=== PATIENT | female | born 1985 | race Two or more races ===

== ENCOUNTER 2024-09-16 17:37 | Observation (INO) | payer MEDICAID, OTHER ==
[~2024-09-16] VITALS: Ht 162.6 cm; Wt 63.5 kg
[2024-09-16] MEDS ORDERED: PREN1TAB71 OR (17:54)
[2024-09-16 19:45] LABS: Basophils # (auto) 0 10 ^3/uL (0-0.2); Basophils % (auto) 0.8 % (0.0-2.0); Eosinophils # (auto) 0.1 10 ^3/uL (0-0.8); Eosinophils % (auto) 1.3 % (0.0-7.0); Hematocrit 27.9 % (36.0-46.0); Hemoglobin 9.2 g/dL (12.2-16.2); Lymphocytes # (auto) 1.5 10 ^3/uL (0.4-5.4); Lymphocytes % (auto) 24.2 % (10.0-50.0); Mean Corpuscular Hemoglobin 25.6 pg (28.0-32.0); Mean Corpuscular Hgb Conc. 32.9 g/dL (32.0-36.0); Mean Corpuscular Volume 77.8 fL (80.0-100.0); Monocytes # (auto) 0.8 10 ^3/uL (0-1.3); Monocytes % (auto) 11.8 % (0.0-12.0); Neutrophils % (auto) 61.9 % (37.0-80.0); Nucleated Red Blood Cells % 0.1 %; Platelet Count (auto) 249 10^3/uL (140-450); Red Blood Cells 3.59 10^6/uL (4.0-5.20); Red Cell Distribution Width 15.8 % (11.8-14.3); White Blood Cell 6.4 10^3/uL (4.4-10.8)
[2024-09-16 19:56] LABS: Alanine Aminotransferase 25 U/L (7-40); Albumin 3.4 g/dL (3.2-4.8); Alkaline Phosphatase 58 U/L (46-116); Amylase 80 U/L (30-118); Anion Gap 6 (5-15); Aspartate Aminotransferase 27 U/L (13-40); BUN/Creatinine Ratio 10.5 (10.0-20.0); Blood Urea Nitrogen 6 mg/dL (9-23); Calcium 8.6 mg/dL (8.7-10.4); Carbon Dioxide 24 mmol/L (20-31); Chloride 109 mmol/L (98-107); Glucose 85 mg/dL (74-106); Lipase 44 U/L (12-53); Potassium 4.1 mmol/L (3.5-5.1); Sodium 139 mmol/L (136-145)
[2024-09-16 19:57] LABS: Bilirubin, Total 0.4 mg/dL (0.2-1.0); Total Protein 6.1 g/dL (5.7-8.2)
--- NOTE | 2024-09-16 20:30 | DVH ---
OB ULTRASOUND <14 WEEKS: HISTORY: abdominal pain and history of PTL TECHNIQUE: Multiple real-time grayscale sonographic images of the pelvis with duplex Doppler color f low, spectral and M-mode analysis. TRANSDUCERS: Transvaginal FINDINGS: The cervix appears closed and measures 4 cm long IUP single live fetus at 23 weeks 3 days average ultrasound age based measurements BPD: 5.57 cm ; 23 weeks 0 days HC: 21.25 cm ; 23 weeks 2 days AC: 18.96 cm ; 23 weeks 5 days FL: 4.19 cm ; 23 weeks 5 days heart rate detected at 150 beats per minute. position breech Placenta anterior with no previa or abruption. EFW: 611 g CHRISTOFER: Adequate ; MVP: 2.6 cm IMPRESSION: 1. IUP single live fetus 23 weeks 3 days AUA corresponding to an МАРИНА of 01/10/2025 2. FHR: 150 bpm. 3. Contractions were noted. No acute abnormality detected.
[2024-09-16] MEDS: TERBUTALINE SULFATE 1 MG/ML 1ML VIAL SC ONE (20:49)
[2024-09-16] MEDS: TERBUTALINE SULFATE 1 MG/ML 1ML VIAL SC PRN (20:49)
--- NOTE | 2024-09-17 05:21 | DVHDS2 ---
Physician Discharge Progress N Final Diagnosis: IUP 26 wk, abdominal pain Gastroenteritis, acute Dehydration Threatened Labor Operations or Procedures: Operations or Procedures IV hydration, medical observation OB ultrasound NST Cervical length US Commentary: Commentary Cervix closed, cx length 4cm, NOT IN PTL IV hydration, contraction improved with hydration and tocolytics Labs WNL Condition on Discharge: Stable Disposition: Home Discharge Instructions: Diet: Regular Activity: No Restrictions, As Tolerated Follow Up/Referral: Pt encouraged to follow up with primary OB at scheduled appointment tomorrow. Medications: No new meds Follow Up Care: Discharge Statement: "Patient was advised to return to the ER or call 911 if any headaches, dizziness, shortness of breath, chest pain, abdominal pain, bleeding, fevers, or worsening of medical condition. Patient was counseled about treatment plan, medications, possible side effects, patientverbalized understanding. All questions were answered to the best of my ability. This discharge took greater then 30 minutes in planning, reviewing documentation, counseling the patient, and discussing with other team members." JIL STEWARD DO Sep 17, 2024 05:21
== END 2024-09-16 22:19 | disposition home or self-care (01) ==
LOC: LDRP 17:37
PROVIDERS: ADMIT Obstetrics & Gynecology; ATTEND Obstetrics & Gynecology
DX: O47.02 False labor before 37 completed weeks of gestation, second trimester (principal); O99.282 Endocrine, nutritional and metabolic diseases complicating pregnancy, second trimester; E86.0 Dehydration; O99.612 Diseases of the digestive system complicating pregnancy, second trimester; K52.9 Noninfective gastroenteritis and colitis, unspecified; Z3A.26 26 weeks gestation of pregnancy; Z79.899 Other long term (current) drug therapy; Z88.0 Allergy status to penicillin
CPT/HCPCS: 36415; 59025; 76805; 76817; 80053; 82150; 83690; 85025; 94760; 96360; 96361; 96372; G0378; J3105

== ENCOUNTER 2024-10-26 17:35 | Observation (INO) | payer MEDICAID ==
[~2024-10-26] VITALS: Ht 162.6 cm; Wt 63.5 kg
[2024-10-26] MEDS ORDERED: TERBUTALINE SULFATE 1 MG/ML 1ML VIAL SC SCH (19:30)
--- NOTE | 2024-10-26 20:19 | DVH ---
OB ULTRASOUND, LIMITED CLINICAL INDICATION: Contractions TECHNIQUE: Multiple grayscale ultrasound and M-mode images were obtained of the pelvis for evaluation of intrauterine . COMPARISON: US OB ULTRASOUND COMP GTR 14 WKS on DOS: 09/16/24 FINDINGS: A single living fetus is seen in transverse head left presentation. Biparietal diameter: 7.32 cm (29 weeks, 3 days) Head Circumference: 27.37 cm (29 weeks, 6 days) Abdomen Circumference: 25.42 cm (29 weeks, 4 days) Femur Length: 5.58 cm (29 weeks, 3 days) Estimated weight: 1411 grams (+/- 211 grams). 3 lb 2 oz Placenta: Anterior, low-lying 1.7 cm from the cervix. Amniotic fluid: Visibly normal. CHRISTOFER 22 cm Cervix is 3.9 cm and closed. heart rate: 131 beats/min. A complete anatomic survey was not performed on this exam. IMPRESSION: Single intrauterine with an estimated gestational age of 29 weeks, 4 days, corresponding to an estimated date of delivery of 01/07/2025. Low-lying anterior placenta.
--- NOTE | 2024-10-27 03:41 | DVHDS2 ---
Physician Discharge Progress N Final Diagnosis: PTL Problems List: (1) labor in third trimester Operations or Procedures: Operations or Procedures S: 38yo IUP@29.3wks presents to OB triage with c/o UCs and vaginal pressure. Pt reports going to [facility] ED last week and being dx with kidney stones. Denies LOF/VB/CUELLAR/vision changes/RUQ pain. Endorses +FM. PNC [facility], next appt scheduled for 11/01/24. PNC complicated with threatened with 2 cm open cervix in first trime ster, denies any complications after that. O: VSS UA wnl NST reactive TOCO: 1 UC seen but pt feels them every 5 minutes 1 dose of SQ terbutaline given, no UCs seen with TOCO, pt denies feeling UCs prior to D/C SVE by RN: closed/thick/high A: 38yo IUP@29.3wks PTL, resolved P: D/C home Pt instructed to drink 1 gallon of water a day. Pt instructed to f/u with Dr. Sacles sole buffer ROBERTA and notify them of PTL occurrence. kick counts and Preeclampsia warning signs reviewed. PTL precautions given and when to return to the hospital. Other Interventions Other Interventions [place] [address] Ph: [phone] DIAGNOSTIC IMAGING Diagnostic Imaging Report : [id number] Signed PATIENT: PABLO NOLAN ACCT: [id number] UNIT: [id number] : 1985 LOC: [facility] ROOM / BED: TRIAGE1 / A AGE / SEX: 38 / F ADM STATUS: ADM IN SERVICE 13 ORDERING PHYSICIAN: VIRGINIA SMITH CNM PROCEDURE(s): OBUS - OB ULTRASOUND COMP GTR 14 WKS REASON: Contractions ORDER NUMBER(s): [id number], ACCESSION NUMBER(s): [id number] OB ULTRASOUND, LIMITED CLINICAL INDICATION: Contractions TECHNIQUE: Multiple grayscale ultrasound and M-mode images were obtained of the pelvis for evaluation of intrauterine . COMPARISON: US OB ULTRASOUND COMP GTR 14 WKS on DOS: 09/16/24 FINDINGS: A single living fetus is seen in transverse head left presentation. Biparietal diameter: 7.32 cm (29 weeks, 3 days) Head Circumference: 27.37 cm (29 weeks, 6 days) Abdomen Circumference: 25.42 cm (29 weeks, 4 days) Femur Length: 5.58 cm (29 weeks, 3 days) Estimated weight: 1411 grams (+/- 211 grams). 3 lb 2 oz Placenta: Anterior, low-lying 1.7 cm from the cervix. Amniotic fluid: Visibly normal. CHRISTOFER 22 cm Cervix is 3.9 cm and closed. heart rate: 131 beats/min. A complete anatomic survey was not performed on this exam. IMPRESSION: Single intrauterine with an estimated gestational age of 29 weeks, 4 days, corresponding to an estimated date of delivery of 01/07/2025. Low-lying anterior placenta. ATED BY: ARIAN SOMMER MD DICTATED DATE/TIME: 10/26/242015 SIGNED BY: ARIAN SOMMER MD SIGNED DATE/TIME: 10/26/242015 CC: Condition on Discharge: Stable Disposition: Home Discharge Instructions: Diet: Regular Activity: Light activity Activity comment: pelvic rest Medications: see med list Follow Up Care: Specialist: Pt instructed to f/u with Dr. Scales sole buffer ROBERTA and notify them of PTL occurrence. Discharge Statement: "Patient was advised to return to the ER or call 911 if any headaches, dizziness, shortness of breath, chest pain, abdominal pain, bleeding, fevers, or worsening of medical condition. Patient was counseled about treatment plan, medications, possible side effects, patientverbalized understanding. All questions were answered to the best of my ability. This discharge took greater then 30 minutes in planning, reviewing documentation, counseling the patient, and discussing with other team members." VIRGINIA SMITH CNM Oct 27, 2024 03:41
== END 2024-10-26 20:56 | disposition home or self-care (01) ==
LOC: LDRP 17:35
PROVIDERS: ADMIT Obstetrics & Gynecology; ATTEND Obstetrics & Gynecology
DX: O60.03 Preterm labor without delivery, third trimester (principal); Z3A.29 29 weeks gestation of pregnancy; Z79.899 Other long term (current) drug therapy; Z98.890 Other specified postprocedural states
CPT/HCPCS: 59025; 76805; 81002; 94760; 96372; G0378; J3105

== ENCOUNTER 2024-11-05 19:56 | Observation (INO) | payer MEDICAID ==
[~2024-11-05] VITALS: Ht 162.6 cm; Wt 68.0 kg
--- NOTE | 2024-11-05 23:35 | DVHDS2 ---
Physician Discharge Progress N Final Diagnosis: IUP 30 wk, threatened labor Renal colic, hx of nephrolithiasis Operations or Procedures: Operations or Procedures NST Condition on Discharge: Guarded Disposition: Home Discharge Instructions: Diet: Regular Activity: No Restrictions, As Tolerated Follow Up/Referral: Follow up with Primary OB-OFFICE MESSENGER HELPER Dr. Scales at [facility] appt. on 11/14/24. Medications: Take all prescribed medications as directed. Follow Up Care: Discharge Statement: "Patient was advised to return to the ER or call 911 if any headaches, dizziness, shortness of breath, chest pain, abdominal pain, bleeding, fevers, or worsening of medical condition. Patient was counseled about treatment plan, medications, possible side effects, patientverbalized understanding. All questions were answered to the best of my ability. This discharge took greater then 30 minutes in planning, reviewing documentation, counseling the patient, and discussing with other team members." JIL STEWARD DO Nov 05, 2024 23:35
== END 2024-11-05 21:47 | disposition home or self-care (01) ==
LOC: LDRP 19:56
PROVIDERS: ADMIT Obstetrics & Gynecology; ATTEND Obstetrics & Gynecology
DX: O47.03 False labor before 37 completed weeks of gestation, third trimester (principal); O99.891 Other specified diseases and conditions complicating pregnancy; M54.9 Dorsalgia, unspecified; O21.2 Late vomiting of pregnancy; O26.893 Other specified pregnancy related conditions, third trimester; R51.9 Headache, unspecified; N23 Unspecified renal colic; Z87.442 Personal history of urinary calculi; Z3A.30 30 weeks gestation of pregnancy
CPT/HCPCS: 59025; 81002; 94760; G0378

== ENCOUNTER 2024-11-29 12:13 | Observation (INO) | payer MEDICAID ==
--- NOTE | 2024-11-29 12:42 | DVHDS2 ---
Physician Discharge Progress N Final Diagnosis: labor check Operations or Procedures: Operations or Procedures cx closed/thick./high Condition on Discharge: Good Disposition: Home Discharge Instructions: Diet: Regular Activity: Light activity Medications: na Follow Up Care: Specialist: one day with ob Discharge Statement: "Patient was advised to return to the ER or call 911 if any headaches, dizziness, shortness of breath, chest pain, abdominal pain, bleeding, fevers, or worsening of medical condition. Patient was counseled about treatment plan, medications, possible side effects, patientverbalized understanding. All questions were answered to the best of my ability. This discharge took greater then 30 minutes in planning, reviewing documentation, counseling the patient, and discussing with other team members." KIKA CANELA DO Nov 29, 2024 12:42
== END 2024-11-29 13:32 | disposition home or self-care (01) ==
LOC: UNDOADMOB 12:13 → LDRP 12:13 → UNDODISOB 13:32
PROVIDERS: ADMIT Obstetrics & Gynecology; ATTEND Obstetrics & Gynecology
DX: O62.9 Abnormality of forces of labor, unspecified (principal); O99.891 Other specified diseases and conditions complicating pregnancy; M54.9 Dorsalgia, unspecified; Z3A.34 34 weeks gestation of pregnancy; Z79.899 Other long term (current) drug therapy; Z98.890 Other specified postprocedural states
CPT/HCPCS: 59025; 81002; G0378

== ENCOUNTER 2024-12-22 21:20 | Emergency (ER) | payer MEDICAID, OTHER ==
[~2024-12-22] VITALS: Ht 162.6 cm; Wt 61.5 kg
[2024-12-22 21:24] VITALS: BP 119/80; RESP 16; O2SAT 97
[2024-12-22] MEDS ORDERED: SODIUM CHLORIDE 0.9% 1,000 ML IV ONE (21:30)
[2024-12-22 21:54] LABS: Basophils # (auto) 0.1 10 ^3/uL (0-0.2); Eosinophils # (auto) 0.1 10 ^3/uL (0-0.8); Hemoglobin 12.7 g/dL (12.2-16.2); Lymphocytes # (auto) 1.7 10 ^3/uL (0.4-5.4); Monocytes # (auto) 0.4 10 ^3/uL (0-1.3); Nucleated Red Blood Cells % 0.1 %; White Blood Cell 5.1 10^3/uL (4.4-10.8)
[2024-12-22 21:55] LABS: Basophils % (auto) 1.4 % (0.0-2.0); Eosinophils % (auto) 1.9 % (0.0-7.0); Lymphocytes % (auto) 33.9 % (10.0-50.0); Mean Corpuscular Hemoglobin 23.8 pg (28.0-32.0); Mean Corpuscular Hgb Conc. 30.9 g/dL (32.0-36.0); Mean Corpuscular Volume 76.9 fL (80.0-100.0); Monocytes % (auto) 7.2 % (0.0-12.0); Neutrophils # (auto) 2.9 10 ^3/uL (1.6-8.6); Neutrophils % (auto) 55.6 % (37.0-80.0); Platelet Count (auto) 311 10^3/uL (140-450); Red Blood Cells 5.33 10^6/uL (4.0-5.20); Red Cell Distribution Width 26.6 % (11.8-14.3)
[2024-12-22 21:58] VITALS: PULSE 57
--- NOTE | 2024-12-22 21:58 | ED.PDOC ---
History of Present Illness HPI Comments 39 y/o F is [id number] ambulance for c/o non-radiating, left-anterior chest- wall, lower back, and bilateral leg pain and shortness of breath, today. Per EMS report, patient, initially, called for sudden and unprovoked onset of chest pain and shortness of breath, earlier, this evening, that worsened with respirations. Pain is described to be sharp in quality and a 7/10 in severity. On scene, patient's vitals were stated to have been stable and within normal limits. Patient is stated to have a history of anemia and asthma, with recent blood transfusions following a she had 2x weeks ago. At time of assessment, patient complains of lower back pain that radiaties to her legs. She denies having any fever, chills, nausea, vomiting, or other associated symptoms or modifiers at this time. 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 HAND History: Denies all TOOL LAPPER HAND Hx Family History Family History: Unknown Social History Smoker: Non-Smoker Alcohol: Denies ETOH Use Drugs: Denies Drug Use Lives In: Home Gastrointestinal: reports: constipated All Other Systems: Reviewed and Negative (comprehensive overview of systems negative unless otherwise stated in HPI) Physical Exam General Appearance: No Apparent Distress, Normal HEENT: Normal ENT Inspection, Pharynx Normal, TMs Normal Neck: Full Range of Motion, Non-Tender, Normal, Normal Inspection Respiratory: Chest Non-Tender, Lungs Clear, No Accessory Muscle Use, No Respiratory Distress, Normal Breath Sounds Cardiovascular: No Edema, No JVD, No Murmur, No Gallop, Normal Peripheral Pulses, Regular Rate/Rhythm Breast Exam: Deferred Gastrointestinal: No Organomegaly, Non Tender, No Pulsatile Mass, Normal Bowel Sounds, Soft Genitalia: Deferred Pelvic: Deferred Rectal: Deferred Extremities: No calf tenderness, Normal capillary refill, Normal inspection, Normal range of motion, No pedal edema, Tender (bilateral lower extremities) Musculoskeletal : Apperance: Normal Neurologic: Alert, assembler wire group II-XII nml as Tested, No Motor Deficits, Normal Affect, Normal Mood, No Sensory Deficits Cerebellar Function: Normal Reflexes: Normal Skin: Dry, Normal Color, Warm Lymphatic: No Adenopathy Was a procedure done? Was a procedure done?: No EKG EKG : Pulse Rate (adult): 57 [place]: Normal Cardiac Rhythm: NSR Block: None Hypertrophy: None ST: Normal Differential Dx Considerations may include: FL, ACS, PE, URI, Viral syndrome, costochondritis, pericarditis X-Ray, Labs, Meds, VS Vital Signs Date Time Temp Pulse Resp B/P (MAP) Pulse Ox O2 Delivery O2 Flow Rate FiO2 12/22/24 21:58 57 12/22/24 21:33 57 12/22/24 21:24 97.8 62 16 119/80 (93) 97 Lab Test 12/22/24 21:43 Range/Units White Blood Count 5.1 4.4-10.8 10^3/uL Red Blood Count 5.33 H 4.0-5.20 10^6/uL Hemoglobin 12.7 12.2-16.2 g/dL Hematocrit 41.0 36.0-46.0 % Mean Corpuscular Volume 76.9 L 80.0-100.0 fL Mean Corpuscular Hemoglobin 23.8 L 28.0-32.0 pg Mean Corpuscular Hemoglobin Concent 30.9 L 32.0-36.0 g/dL Red Cell Distribution Width 26.6 H 11.8-14.3 % Platelet Count 311 140-450 10^3/uL Mean Platelet Volume 7.5 6.9-10.8 fL Neutrophils (%) (Auto) 55.6 37.0-80.0 % Lymphocytes (%) (Auto) 33.9 10.0-50.0 % Monocytes (%) (Auto) 7.2 0.0-12.0 % Eosinophils (%) (Auto) 1.9 0.0-7.0 % Basophils (%) (Auto) 1.4 0.0-2.0 % Neutrophils # (Auto) 2.9 1.6-8.6 10 ^3/uL Lymphocytes # (Auto) 1.7 0.4-5.4 10 ^3/uL Monocytes # (Auto) 0.4 0-1.3 10 ^3/uL Eosinophils # (Auto) 0.1 0-0.8 10 ^3/uL Basophils # (Auto) 0.1 0-0.2 10 ^3/uL Nucleated Red Blood Cells 0.1 % D-Dimer, Quantitative Pending Sodium Level 140 136-145 mmol/L Potassium Level 4.0 3.5-5.1 mmol/L Chloride Level 104 98-107 mmol/L Carbon Dioxide Level 28 20-31 mmol/L Anion Gap 8 5-15 Blood Urea Nitrogen 12 9-23 mg/dL Creatinine 0.72 0.550-1.02 mg/dL Glomerular Filtration Rate Calc 110 >90 mL/min BUN/Creatinine Ratio 16.7 10.0-20.0 Serum Glucose 94 74-106 mg/dL Calcium Level 9.4 8.7-10.4 mg/dL Troponin I High Sensitivity < 3 L </=34 ng/L Time of 1ST Reevaluation: 21:55 Reevaluation 1ST: Unchanged Time of 2ND Reevaluation: 22:10 Reevaluation 2ND: Improved Patient Education/Counseling: Diagnosis, Treatment Family Education/Counseling: No Family Present Additional Information - The following tests were ordered, and results were reviewed by me: CT angio chest w/contrasts, BMP, EKG, CXR, CBC - Additional information was gathered from interviewing the following independent Historian: EMS - I reviewed and agreed with the following test results read by other provider:CT angion chest w/contrasts, CXR - I discussed treatments and results with medical personnel pt refused an IV, so CTA could not be done. i ordered a DDi instead since i was still concerned about PE, as she had c section recently. however, on reassessment, pt eloped Departure 1 Departure Time of Disposition: 22:51 Impression: Primary Impression: Chest pain Disposition: 07 LEFT AWOL/ELOPED Condition: Other (unknown) Critical Care Note Critical Care Time?: Yes (55 min-critical care time only) Critical care comment: due to concerns for deterioration of patient's condition, the care required my highest level of attention and readiness. i assessed the patient's condition, reviewed relevant documents, communicated with medical personnel, ordered the proper tests and treatments, reassessed for results and response to treatments, spoke to family and consultants and formulated a plan of care Stability Stability form required: No Heart Score Heart Score: Heart Score Response (Comments) Value History Moderate Suspicious 1 EKG Normal 0 Age <45 0 Risk Factors 1 or 2 risk factors 1 Troponin Normal limit 0 Total 2 I personally scribed for MARGOT LYN MD ([email or web address]) on 12/22/24 at 21:58. Electronically submitted by Fernie Prakash ([email or web address]). MARGOT LYN MD Dec 22, 2024 21:58
[2024-12-22 22:00] LABS: Chloride 104 mmol/L (98-107); Sodium 140 mmol/L (136-145)
[2024-12-22 22:01] LABS: Anion Gap 8 (5-15); Carbon Dioxide 28 mmol/L (20-31)
[2024-12-22 22:02] LABS: Calcium 9.4 mg/dL (8.7-10.4)
[2024-12-22 22:06] LABS: BUN/Creatinine Ratio 16.7 (10.0-20.0); Blood Urea Nitrogen 12 mg/dL (9-23); Glucose 94 mg/dL (74-106)
--- NOTE | 2024-12-22 22:36 | DVH ---
CHEST RADIOGRAPH Indication: cp Technique: Single frontal view of the chest was obtained Comparison: None FINDINGS: Lines and Tubes: None Lungs: No focal consolidation. Pleura: No effusion. No pneumothorax. Cardiomediastinal contours: Unremarkable Bones: No acute osseous abnormality. IMPRESSION: 1. o acute cardiopulmonary disease.
--- NOTE | 2024-12-23 06:09 | ECG ---
[facility] Test Date: 2024-12-22 Test Time: 21:33:14 Pat Name: CECILIO CAR Department: ER Room: Gender: F Director Data Processing: HENRY : 1985 Requested By: MARGOT LYN Order Number: [id number] Reading MD: Measurements Intervals [place] Rate: 57 P: 41 CT: 159 QRS: 114 QRSD: 94 T: 58 QT: 440 QTc: 429 Interpretive Statements Sinus rhythm Left atrial enlargement Anteroseptal infarct, age indeterminate Please click the below link to view image of tracing.
== END 2024-12-22 22:49 | disposition left against medical advice (07) ==
LOC: EDBD 21:20 → ER 21:20 → MERGE 21:20 → ER 22:49
DX: O90.89 Other complications of the puerperium, not elsewhere classified (principal); R07.89 Other chest pain; M54.50 Low back pain, unspecified; M79.604 Pain in right leg; M79.605 Pain in left leg; J45.909 Unspecified asthma, uncomplicated; Z86.2 Personal history of diseases of the blood and blood-forming organs and certain disorders involving the immune mechanism; Z98.890 Other specified postprocedural states
CPT/HCPCS: 36415; 71045; 80048; 84484; 85025; 85379; 93005

== ENCOUNTER 2025-03-24 15:51 | Emergency (ER) | payer MEDICAID ==
[~2025-03-24] VITALS: Ht 162.6 cm; Wt 59.8 kg
[2025-03-24 16:36] VITALS: BP 108/55; PULSE 64; RESP 16; TEMP 97.9; O2SAT 96
[2025-03-24] MEDS ORDERED: HYDROcodone-ACET 5/325MG TAB PO ONE (16:45)
--- NOTE | 2025-03-24 16:50 | ED.PDOC ---
Musculoskeletal HPI Comments 39 y.o femalen with PMHx of anemia, presents to the ED for a chief complaint of lower extremity pain that started this morning. Patient reports pain came onset spontaneously, described as sharp, constant with a throbbing sensation to the right leg and is tender on palpation. Patient noticed red spots spread throughout her legs that do not appear itchy. Patient also mentions pain radiating to her left arm and chest a couple hours ago but since arriving to the ED, has self resolved. Patient denies any recent trauma, injuries, history of neuropathy, or rashes on extremities. Patient had a 3 months ago and had 2 units of blood transfused. No complications after the transfusion. Chief Complaint: Lower Extremity Time Seen by MD: 16:41 Primary Care Provider: NONE Reviewed Notes: Nurses Notes, Medications, Allergies Allergies: Coded Allergies: Penicillins (Verified Allergy, Unknown, 09/16/24) Home Meds Active Scripts Tramadol HCl (Tramadol HCl) 50 Mg Tab, 50 MG PO Q8HP PRN for 5 Days, #15 TAB Prov:JEM RIVERA MD 03/24/25 Information Source: Patient, Spouse Mode of Arrival: Wheelchair Location: Bilateral Extremity Location: Leg Timing: Hours Severity: Moderate Able to Move Extremity: No Bear Weight: Limited Pain: Moderate Mechanism: None Circumstances: Spontaneous Onset of Symptoms: Spontaneous Symptoms: Pain DVT Risk Factors: Recent surgery Associated signs and symptoms: Leg pain Past Medical History PAST MEDICAL HISTORY: Anemia Past Medical History (Other): blood transfusion Surgical History: INSTRUCTIONAL SERVICES SPECIALIST History: No Pertinent INSTRUCTIONAL SERVICES SPECIALIST History Family History Family History: Family hx of DM, Family hx of Cancer Social History Smoker: Non-Smoker Alcohol: Denies ETOH Use Drugs: Denies Drug Use Lives In: Home Constitutional: denies: chills, diaphoresis, fatigue, fever, malaise, sweats, weakness, others EENTM: denies: blurred vision, double vision, ear bleeding, ear discharge, ear drainage, ear pain, ear ringing, eye pain, eye redness, hearing loss, mouth pain, mouth swelling, nasal discharge, nose bleeding, nose congestion, nose pain, photophobia, tearing, throat pain, throat swelling, voice changes, others Respiratory: denies: cough, hemoptysis, orthopnea, SOB at rest, shortness of breath, SOB with excertion, stridor, wheezing, others Cardiovascular: reports: chest pain, left arm pain; denies: dizzy spells, diaphoresis, Dyspnea on exertion, edema, irregular heart beat, lightheadedness, palpitations, PND, syncope, others Gastrointestinal: denies: abdomen distended, abdominal pain, blood streaked bowels, constipated, diarrhea, dysphagia, difficulty swallowing, hematemesis, melena, nausea, poor appetite, poor fluid intake, rectal bleeding, rectal pain, vomiting, others Genitourinary: denies: abnormal vagina bleeding, burning, dyspareunia, dysuria, flank pain, frequency, hematuria, incontinence, pain, , vagina discharge, urgency, others Neurological: denies: dizziness, fainting, headache, left sided numbness, left sided weakness, numbness, paresthesia, pre-existing deficit, right sided numbness, right sided weakness, seizure, speech problems, tingling, tremors, weakness, others Musculoskeletal: reports: others (lower extremity pain ); denies: back pain, gout, joint pain, joint swelling, muscle pain, muscle stiffness, neck pain Integumetry: denies: bruises, change in color, change in hair/nails, dryness, laceration, lesions, lumps, rash, wounds, others Allergic/Immunocompromised: denies: Difficulty Healing, Frequent Infections, Hives, Itching, others Hematologic/Lymphatic: denies: anemia, blood clots, easy bleeding, easy bruising, swollen glands, others Endocrine: denies: excessive hunger, excessive sweating, excessive thirst, excessive urination, flushing, intolerance to cold, intolerance to heat, unexplained weight gain, unexplained weight loss, others Psychiatric: denies: anxiety, bipolar disorder, depression, hopeless, panic disorder, schizophrenia, sleepless, suicidal, others All Other Systems: Reviewed and Negative Physical Exam General Appearance: No Apparent Distress HEENT: Normal ENT Inspection, Pharynx Normal, TMs Normal Neck: Full Range of Motion, Non-Tender, Normal, Normal Inspection Respiratory: Chest Non-Tender, Lungs Clear, No Accessory Muscle Use, No Respiratory Distress, Normal Breath Sounds Cardiovascular: No Edema, No JVD, No Murmur, No Gallop, Normal Peripheral Pulses, Regular Rate/Rhythm Breast Exam: Deferred Gastrointestinal: No Organomegaly, Non Tender, No Pulsatile Mass, Normal Bowel Sounds, Soft Genitalia: Deferred Pelvic: Deferred Rectal: Deferred Extremities: No calf tenderness, Normal capillary refill, Normal inspection, Normal range of motion, Non-tender, No pedal edema Musculoskeletal : Apperance: Normal Neurologic: Alert, defensive line coach II-XII nml as Tested, No Motor Deficits, Normal Affect, Normal Mood, No Sensory Deficits Cerebellar Function: Normal Reflexes: Normal Skin: Dry, Normal Color, Warm Lymphatic: No Adenopathy Was a procedure done? Was a procedure done?: No Differential Diagnosis EXT Differential Diagnosis: Deep Vein Thrombosis, Sprain, Contusion, Strain, Rheumatoid, Neurovascular injury, Arthritis X-Ray, Labs, Meds, VS Vital Signs Date Time Temp Pulse Resp B/P (MAP) Pulse Ox O2 Delivery O2 Flow Rate FiO2 03/24/25 16:36 97.9 64 16 108/55 (72) 96 97.9 03/24/25 15:51 97.9 64 16 108/55 (72) 96 97.9 Lab Test 03/24/25 16:55 Range/Units White Blood Count 4.9 4.4-10.8 10^3/uL Red Blood Count 4.67 4.0-5.20 10^6/uL Hemoglobin 12.9 12.2-16.2 g/dL Hematocrit 38.2 36.0-46.0 % Mean Corpuscular Volume 81.7 80.0-100.0 fL Mean Corpuscular Hemoglobin 27.6 L 28.0-32.0 pg Mean Corpuscular Hemoglobin Concent 33.8 32.0-36.0 g/dL Red Cell Distribution Width 14.0 11.8-14.3 % Platelet Count 211 140-450 10^3/uL Mean Platelet Volume 8.1 6.9-10.8 fL Neutrophils (%) (Auto) 49.5 37.0-80.0 % Lymphocytes (%) (Auto) 36.2 10.0-50.0 % Monocytes (%) (Auto) 11.2 0.0-12.0 % Eosinophils (%) (Auto) 2.0 0.0-7.0 % Basophils (%) (Auto) 1.1 0.0-2.0 % Neutrophils # (Auto) 2.4 1.6-8.6 10 ^3/uL Lymphocytes # (Auto) 1.8 0.4-5.4 10 ^3/uL Monocytes # (Auto) 0.5 0-1.3 10 ^3/uL Eosinophils # (Auto) 0.1 0-0.8 10 ^3/uL Basophils # (Auto) 0.1 0-0.2 10 ^3/uL Nucleated Red Blood Cells 0.2 % Sodium Level 142 136-145 mmol/L Potassium Level 3.5 3.5-5.1 mmol/L Chloride Level 108 H 98-107 mmol/L Carbon Dioxide Level 25 20-31 mmol/L Anion Gap 9 5-15 Blood Urea Nitrogen 12 9-23 mg/dL Creatinine 0.62 0.550-1.02 mg/dL Glomerular Filtration Rate Calc 117 >90 mL/min BUN/Creatinine Ratio 19.4 10.0-20.0 Serum Glucose 92 74-106 mg/dL Calcium Level 8.9 8.7-10.4 mg/dL Magnesium Level 1.9 1.6-2.6 mg/dL The CBC and chemistry panel are within normal limits. At this time, the patient is being given tramadol for the pain The patient will return to the emergency department's condition worsens The patient understands and agrees with the management Is no concern for DVT and the patient is not complaining of any shortness a breath or chest pain upon discharge Time of 1ST Reevaluation: 16:50 Reevaluation 1ST: Unchanged Patient Education/Counseling: Diagnosis, Treatment, Prognosis, Need For Follow Up Family Education/Counseling: Diagnosis, Treatment, Prognosis, Need For Follow Up Departure 1 Departure Time of Disposition: 17:40 Impression: Primary Impression: Bilateral leg pain Disposition: 01 HOME / SELF CARE / HOMELESS Condition: Fair e-Prescriptions Tramadol HCl (Tramadol HCl) 50 Mg Tab 50 MG PO Q8HP PRN for 5 Days, #15 TAB Prov: JEM RIVERA MD 03/24/25 Discharged With: Self Critical Care Note Critical Care Time?: No Stability Stability form required: No Heart Score Heart Score: Heart Score Response (Comments) Value History N/A 0 EKG N/A 0 Age N/A 0 Risk Factors N/A 0 Troponin N/A 0 Total 0 I personally scribed for JEM RIVERA MD ([email or web address]) on 03/24/25 at 16:50. Electronically submitted by Emelina Velaqsuez ([facility]). JEM RIVERA MD March 24, 2025 16:50
[2025-03-24 17:11] LABS: Basophils # (auto) 0.1 10 ^3/uL (0-0.2); Basophils % (auto) 1.1 % (0.0-2.0); Eosinophils # (auto) 0.1 10 ^3/uL (0-0.8); Hematocrit 38.2 % (36.0-46.0); Hemoglobin 12.9 g/dL (12.2-16.2); Lymphocytes # (auto) 1.8 10 ^3/uL (0.4-5.4); Lymphocytes % (auto) 36.2 % (10.0-50.0); Mean Corpuscular Hemoglobin 27.6 pg (28.0-32.0); Mean Corpuscular Hgb Conc. 33.8 g/dL (32.0-36.0); Mean Corpuscular Volume 81.7 fL (80.0-100.0); Monocytes # (auto) 0.5 10 ^3/uL (0-1.3); Monocytes % (auto) 11.2 % (0.0-12.0); Neutrophils # (auto) 2.4 10 ^3/uL (1.6-8.6); Neutrophils % (auto) 49.5 % (37.0-80.0); Nucleated Red Blood Cells % 0.2 %; Platelet Count (auto) 211 10^3/uL (140-450); Red Blood Cells 4.67 10^6/uL (4.0-5.20); White Blood Cell 4.9 10^3/uL (4.4-10.8)
[2025-03-24 17:27] LABS: Anion Gap 9 (5-15); Carbon Dioxide 25 mmol/L (20-31); Potassium 3.5 mmol/L (3.5-5.1); Sodium 142 mmol/L (136-145)
[2025-03-24 17:28] LABS: Calcium 8.9 mg/dL (8.7-10.4)
[2025-03-24 17:33] LABS: BUN/Creatinine Ratio 19.4 (10.0-20.0); Blood Urea Nitrogen 12 mg/dL (9-23); Glucose 92 mg/dL (74-106); Magnesium 1.9 mg/dL (1.6-2.6)
[2025-03-24 17:36] LABS: Chloride 108 mmol/L (98-107)
[2025-03-24] MEDS ORDERED: TRAM-626 PO (17:40)
== END 2025-03-24 19:30 | disposition left against medical advice (07) ==
LOC: ER 15:51
DX: M79.605 Pain in left leg (principal); M79.604 Pain in right leg; Z88.0 Allergy status to penicillin; Z79.899 Other long term (current) drug therapy
CPT/HCPCS: 36415; 80048; 83735; 85025

== ENCOUNTER 2025-04-02 20:27 | Emergency (ER) | payer MEDICAID ==
[~2025-04-02] VITALS: Ht 162.6 cm; Wt 61.4 kg
[~2025-04-02 20:27] MED LIST: TRAM-626 PO
--- NOTE | 2025-04-02 20:46 | ED.PDOC ---
History of Present Illness HPI Comments 39 y/o F presents with 3x day history of nonproductive cough, with associated chest-wall pain and voice loss. Patient only endorses only relevant history of asthma. She denies any shortness of breath, fever, chills, nausea, or vomiting. Upon arrival to ED, patient was found with a temperature of 99.8F. Chief Complaint: Flu like Time Seen by MD: 20:40 Primary Care Provider: NONE Reviewed Notes: Nurses Notes, Medications, Allergies Allergies: Coded Allergies: Penicillins (Verified Allergy, Unknown, 09/16/24) Home Meds Active Scripts Promethazine-Dm (Promethazine Dm 6.25-15 mg/5Ml) 1 Batsheva Batsheva, 1 TSP PO Q6HP PRN, #100 ML Prov:FANNIE AMOS MD 04/02/25 Azithromycin (Azithromycin) 500 Mg Tab, 1 TAB PO DAILY for 7 Days, #7 TAB Prov:FANNIE AMOS MD 04/02/25 Tramadol HCl (Tramadol HCl) 50 Mg Tab, 50 MG PO Q8HP PRN for 5 Days, #15 TAB Prov:JEM RIVERA MD 03/24/25 Information Source: Patient Mode of Arrival: Ambulatory Severity: Moderate Timing: Days Duration: Since onset Prehospital treatment: None Past Medical History PAST MEDICAL HISTORY: Anemia (secondary to blood loss during ), Asthma Surgical History: ASSET PROTECTION PROFESSIONAL History: No Pertinent ASSET PROTECTION PROFESSIONAL History Family History Family History: Family hx of DM, Family hx of Cancer Social History Smoker: Non-Smoker Alcohol: Denies ETOH Use Drugs: Denies Drug Use Lives In: Home All Other Systems: Reviewed and Negative (Comprehensive systems review obtained and negative except for what is stated in the HPI.) Physical Exam General Appearance: No Apparent Distress, Normal HEENT: Pharynx Normal, TMs Normal, Other (nasal congestion; otherwise, normal HEENT exam ) Neck: Full Range of Motion, Non-Tender, Normal, Normal Inspection Respiratory: Chest Non-Tender, Lungs Clear, No Accessory Muscle Use, No Respiratory Distress, Normal Breath Sounds Cardiovascular: No Edema, No JVD, No Murmur, No Gallop, Normal Peripheral Pulses, Regular Rate/Rhythm Breast Exam: Deferred Gastrointestinal: No Organomegaly, Non Tender, No Pulsatile Mass, Normal Bowel Sounds, Soft Genitalia: Deferred Pelvic: Deferred Rectal: Deferred Extremities: No calf tenderness, Normal capillary refill, Normal inspection, Normal range of motion, Non-tender, No pedal edema Musculoskeletal : Apperance: Normal Neurologic: Alert, torpedo man II-XII nml as Tested, No Motor Deficits, Normal Affect, Normal Mood, No Sensory Deficits Cerebellar Function: Normal Reflexes: Normal Skin: Dry, Normal Color, Warm Lymphatic: No Adenopathy Was a procedure done? Was a procedure done?: No EKG EKG : [place]: Normal Cardiac Rhythm: NSR Block: None Hypertrophy: None ST: Normal Differential Dx Considerations may include: Viral syndrome, URI, PNA, SD, PE, ACS, anxiety, angina, among others X-Ray, Labs, Meds, VS Vital Signs Date Time Temp Pulse Resp B/P (MAP) Pulse Ox O2 Delivery O2 Flow Rate FiO2 04/02/25 21:48 99.1 94 18 117/67 (84) 98 99.1 04/02/25 21:48 94 18 98 Room Air 04/02/25 20:40 99.8 107 18 108/72 (84) 95 99.8 04/02/25 20:31 94 Lab Test 04/02/25 21:21 04/02/25 20:34 Range/Units Troponin I High Sensitivity < 3 L < 3 L </=34 ng/L White Blood Count 7.7 4.4-10.8 10^3/uL Red Blood Count 4.70 4.0-5.20 10^6/uL Hemoglobin 13.2 12.2-16.2 g/dL Hematocrit 38.6 36.0-46.0 % Mean Corpuscular Volume 82.0 80.0-100.0 fL Mean Corpuscular Hemoglobin 28.0 28.0-32.0 pg Mean Corpuscular Hemoglobin Concent 34.1 32.0-36.0 g/dL Red Cell Distribution Width 14.9 H 11.8-14.3 % Platelet Count 226 140-450 10^3/uL Mean Platelet Volume 7.6 6.9-10.8 fL Neutrophils (%) (Auto) 72.1 37.0-80.0 % Lymphocytes (%) (Auto) 17.8 10.0-50.0 % Monocytes (%) (Auto) 8.0 0.0-12.0 % Eosinophils (%) (Auto) 1.6 0.0-7.0 % Basophils (%) (Auto) 0.5 0.0-2.0 % Neutrophils # (Auto) 5.6 1.6-8.6 10 ^3/uL Lymphocytes # (Auto) 1.4 0.4-5.4 10 ^3/uL Monocytes # (Auto) 0.6 0-1.3 10 ^3/uL Eosinophils # (Auto) 0.1 0-0.8 10 ^3/uL Basophils # (Auto) 0 0-0.2 10 ^3/uL Nucleated Red Blood Cells 0.1 % Sodium Level 143 136-145 mmol/L Potassium Level 3.3 L 3.5-5.1 mmol/L Chloride Level 108 H 98-107 mmol/L Carbon Dioxide Level 28 20-31 mmol/L Anion Gap 7 5-15 Blood Urea Nitrogen 7 L 9-23 mg/dL Creatinine 0.68 0.550-1.02 mg/dL Glomerular Filtration Rate Calc 114 >90 mL/min BUN/Creatinine Ratio 10.3 10.0-20.0 Serum Glucose 135 H 74-106 mg/dL Calcium Level 8.9 8.7-10.4 mg/dL Total Bilirubin 0.4 0.2-1.0 mg/dL Aspartate Amino Transferase (AST) 17 13-40 U/L Alanine Aminotransferase (ALT) 15 7-40 U/L Alkaline Phosphatase 78 46-116 U/L Total Protein 7.3 5.7-8.2 g/dL Albumin 4.3 3.2-4.8 g/dL [place] [id number] Ph: [phone] DIAGNOSTIC IMAGING Diagnostic Imaging Report : [id number] Signed PATIENT: PABLO NOLAN ACCT: [id number] UNIT: [id number] : 1985 LOC: ER ROOM / BED: / AGE / SEX: 39 / F ADM STATUS: REG ER SERVICE 35 ORDERING PHYSICIAN: FANNIE AMOS MD PROCEDURE(s): CXR1 - CHEST XRAY 1 VIEW REASON: chest pain ORDER NUMBER(s): [id number], ACCESSION NUMBER(s): [id number] CHEST RADIOGRAPH Indication: chest pain Technique: Single frontal view of the chest was obtained Comparison: None FINDINGS: Lines and Tubes: None Lungs: No focal consolidation. Pleura: No effusion. No pneumothorax. Cardiomediastinal contours: Unremarkable Bones: No acute osseous abnormality. IMPRESSION: No acute cardiopulmonary disease. ATED BY: SIERRA HORTON DO DICTATED DATE/TIME: 04/02/252124 SIGNED BY: SIERRA HORTON DO SIGNED DATE/TIME: 04/02/252124 CC: Time of 1ST Reevaluation: 21:10 Reevaluation 1ST: Unchanged Patient Education/Counseling: Diagnosis, Treatment, Need For Follow Up Family Education/Counseling: No Family Present Departure 1 Departure Time of Disposition: 23:00 Impression: Primary Impression: Cough Additional Impression: Pleuritic chest pain Disposition: 01 HOME / SELF CARE / HOMELESS Condition: Stable e-Prescriptions Promethazine-Dm (Promethazine Dm 6.25-15 mg/5Ml) 1 Batsheva Batsheva 1 TSP PO Q6HP PRN, #100 ML Prov: FANNIE AMOS MD 04/02/25 Azithromycin (Azithromycin) 500 Mg Tab 1 TAB PO DAILY for 7 Days, #7 TAB Prov: FANNIE AMOS MD 04/02/25 Discharged With: Self Critical Care Note Critical Care Time?: No Stability Stability form required: No Heart Score Heart Score: Heart Score Response (Comments) Value History N/A 0 EKG N/A 0 Age N/A 0 Risk Factors N/A 0 Troponin N/A 0 Total 0 I personally scribed for FANNIE AMOS MD ([email or web address]) on 04/02/25 at 20:46. Electronically submitted by Fernie Prakash ([email or web address]). I personally scribed for FANNIE AMOS MD ([email or web address]) on 04/02/25 at 21:31. Electronically submitted by Fernie Prakash ([email or web address]). FANNIE AMOS MD Apr 02, 2025 20:46
[2025-04-02 20:48] LABS: Basophils # (auto) 0 10 ^3/uL (0-0.2); Basophils % (auto) 0.5 % (0.0-2.0); Eosinophils # (auto) 0.1 10 ^3/uL (0-0.8); Eosinophils % (auto) 1.6 % (0.0-7.0); Hematocrit 38.6 % (36.0-46.0); Hemoglobin 13.2 g/dL (12.2-16.2); Lymphocytes # (auto) 1.4 10 ^3/uL (0.4-5.4); Lymphocytes % (auto) 17.8 % (10.0-50.0); Mean Corpuscular Hgb Conc. 34.1 g/dL (32.0-36.0); Monocytes # (auto) 0.6 10 ^3/uL (0-1.3); Neutrophils # (auto) 5.6 10 ^3/uL (1.6-8.6); Neutrophils % (auto) 72.1 % (37.0-80.0); Nucleated Red Blood Cells % 0.1 %; Platelet Count (auto) 226 10^3/uL (140-450); Red Cell Distribution Width 14.9 % (11.8-14.3); White Blood Cell 7.7 10^3/uL (4.4-10.8)
[2025-04-02 21:01] LABS: Alanine Aminotransferase 15 U/L (7-40); Albumin 4.3 g/dL (3.2-4.8); Alkaline Phosphatase 78 U/L (46-116); Anion Gap 7 (5-15); Aspartate Aminotransferase 17 U/L (13-40); BUN/Creatinine Ratio 10.3 (10.0-20.0); Bilirubin, Total 0.4 mg/dL (0.2-1.0); Calcium 8.9 mg/dL (8.7-10.4); Carbon Dioxide 28 mmol/L (20-31); Sodium 143 mmol/L (136-145); Total Protein 7.3 g/dL (5.7-8.2)
[2025-04-02 21:09] LABS: Blood Urea Nitrogen 7 mg/dL (9-23); Chloride 108 mmol/L (98-107); Glucose 135 mg/dL (74-106); Potassium 3.3 mmol/L (3.5-5.1)
--- NOTE | 2025-04-02 21:27 | DVH ---
CHEST RADIOGRAPH Indication: chest pain Technique: Single frontal view of the chest was obtained Comparison: None FINDINGS: Lines and Tubes: None Lungs: No focal consolidation. Pleura: No effusion. No pneumothorax. Cardiomediastinal contours: Unremarkable Bones: No acute osseous abnormality. IMPRESSION: No acute cardiopulmonary disease.
[2025-04-02] MEDS ORDERED: PROM1SOL4 PO (21:34)
[2025-04-02] MEDS ORDERED: AZIT500T66 PO (21:34)
[2025-04-02 21:48] VITALS: BP 117/67; PULSE 94; RESP 18; TEMP 99.1; O2SAT 98
--- NOTE | 2025-04-03 06:14 | ECG ---
[facility] Test Date: 2025-04-02 Test Time: 20:31:46 Pat Name: PABLO NOLAN Department: ER Room: Gender: F Community Development Technician: : 1985 Requested By: EMERGENCY EMERGENCY Order Number: [id number] Reading MD: Pillo Blankenship Measurements Intervals [place] Rate: 94 P: 73 MI: 151 QRS: 104 QRSD: 93 T: -67 QT: 405 QTc: 507 Interpretive Statements Sinus rhythm Biatrial enlargement Low voltage with right axis deviation Probable anteroseptal infarct, old Nonspecific T abnormalities, lateral leads Electronically Signed On 04-03-2025 14:59:35 PDT by Pillo Blankenship Please click the below link to view image of tracing.
== END 2025-04-02 21:50 | disposition home or self-care (01) ==
LOC: ER 20:36
DX: R07.81 Pleurodynia (principal); J45.909 Unspecified asthma, uncomplicated; Z86.2 Personal history of diseases of the blood and blood-forming organs and certain disorders involving the immune mechanism; Z98.890 Other specified postprocedural states; Z88.0 Allergy status to penicillin; Z79.899 Other long term (current) drug therapy
CPT/HCPCS: 36415; 71045; 80053; 84484; 85025; 93005

== ENCOUNTER 2025-10-20 20:21 | Emergency (ER) | payer MEDICAID ==
[~2025-10-20] VITALS: Ht 162.6 cm; Wt 63.5 kg
[~2025-10-20 20:21] MED LIST changes: +AZIT500T66 PO; +PROM1SOL4 PO
[2025-10-20 20:25] VITALS: BP 107/71; PULSE 76; RESP 20; TEMP 98.1; O2SAT 95
[2025-10-20 22:13] LABS: COVID19 ANTIGEN SOFIA FIA NEGATIVE (NEGATIVE)
== END 2025-10-20 23:43 | disposition left against medical advice (07) ==
LOC: ER 20:21
DX: R05.9 Cough, unspecified (principal); Z20.822 Contact with and (suspected) exposure to COVID-19; Z79.899 Other long term (current) drug therapy
CPT/HCPCS: 36415; 87426; 87804